=== PATIENT | female | born 1985 | race Caucasian/White ===

== ENCOUNTER 2021-05-08 15:10 | Emergency (ER) | payer SELFPAY ==
[2021-05-08 15:14] VITALS: BP 140/88; PULSE 99; RESP 18; TEMP 37.1; O2SAT 99; BMI 34.4
--- NOTE | 2021-05-08 15:37 | W.ED.URI ---
Documented by User: CARLOS Casper 05/08/21 15:40 HPI - URI/Sore Throat General: Chief Complaint: Upper Respiratory Infection Stated Complaint: FEVER/Tonsillitis Related Pain Time Seen by Provider: 05/08/21 15:23 History of Present Illness: HPI Narrative: Sore throat times couple weeks. Patient did get a Rocephin shot originally. Was placed on doxycycline and Levaquin. Patient said it felt better for a while and was placed on Bactrim this past week and symptoms not improved. Said she has had high fever at times. She has a history of ear infections and throat infections. Said it hurts to swallow. Denies any drooling. Has history of thyroid removal. Does have an ENT appointment in May MD elicited complaint: sore throat and nasal congestion Pertinent past history: other (Multiple throat and ear infections) Onset (ago): day(s) Consistency: intermittent Severity: mild Associated symptoms: Deny abdominal pain, chills, chest pain, fever(s), headache(s), nasal congestion, nausea or vomiting Review of Systems Const: Denies: fever(s), chills or body aches Eyes: Denies: change in vision or blurry vision ENMT: Reports: throat pain, enlarged tonsils and odynophagia; Denies: nasal congestion Card: Denies: chest pain or dyspnea on exertion Resp: Denies: dyspnea, productive cough or non-productive cough GI: Denies: abdominal pain, nausea or vomiting Musc: Denies: extremity pain Skin/Breast: Denies: rash Neuro: Denies: headache(s) Psych: Denies: anxiety or depression Juan Alberto/Lymph: Denies: easy bruising Physical Exam Const: COMMON NORMALS: no acute distress, average body habitus and patient oriented x3 HENMT: COMMON NORMALS: normocephalic, external ears normal, EAC's normal and Normal external nose present HEAD & SCALP: normal to inspection and normocephalic FACE & SINUS: normal facial exam NOSE: Normal external nose present EXTERNAL EAR: Yes external ears normal EXTERNAL AUDITORY CANAL: EAC's normal MOUTH: Normal oral and palatal mucosa present THROAT: abnormal tonsil bilateral erythema and hypertrophy Eye: COMMON NORMALS: conjunctivae normal GENERAL EYE: appearance normal, both eyes and all related structures CONJUNCTIVA: Yes conjunctivae normal Neck/C-Spine: COMMON NORMALS: no JVD Lymph: LYMPHATIC: lymphadenopathy (No posterior adenopathy) bilateral anterior cervical Chest: COMMONS NORMALS: normal inspection of the chest Resp: COMMON NORMALS: normal respiratory effort and clear to auscultation bilaterally AUSCULTATION: clear to auscultation bilaterally Cardio: COMMON NORMALS: no JVD, regular rate and regular rhythm RATE: regular rate RHYTHM: regular rhythm GI: COMMON NORMALS: Normal to inspection, nondistended, normoactive bowel sounds present Extremity: COMMON NORMALS: normal to inspection and full ROM Neuro: COMMON NORMALS: patient oriented x3 Course Vital Signs: Vital signs: Vital Signs Temperature 98.8 F 05/08/21 15:14 Pulse Rate 99 05/08/21 15:14 Respiratory Rate 18 05/08/21 15:14 Blood Pressure 140/88 05/08/21 15:14 Pulse Oximetry 99 05/08/21 15:14 MDM - URI/Sore Throat Lab Data: Labs: Lab Results 05/08/21 17:50 Monoscreen Negative (Negative) Discharge Plan Discharge Patient Disposition: Home Clinical Impression: Tonsillitis Condition: Stable Prescriptions: New clindamycin HCl 300 mg capsule 300 mg PO Q8H 7 Days Qty: 21 RF: 0 Discharge Orders: Discharge ED (Routine); Ordered 05/08/21 Ordered By: Jose Adams Discharge Diet: Usual diet Discharge Activity: Resume usual activity Patient Instructions: Tonsillitis (ED) Activity Restrictions/Additional Instructions: Follow-up with medical provider as directed. Take medications as prescribed. Return to the ER or your medical provider if condition worsens. Please read and understand discharge instructions. If any questions ask please. Stop other antibiotics. Sign Out Sign Out Data: Patient Sign Out occurred on 05/08/21 at 17:05. Patient's care was discussed, and care was transferred from to BRADY Michael. Coding Level of Care Code ED Computer Repair Engineer for Chg Fwd Exam Comprehensive Documented by User: BRADY Michael 05/08/21 21:42 HPI - URI/Sore Throat General: Chief Complaint: Upper Respiratory Infection Stated Complaint: FEVER/Tonsillitis Related Pain Time Seen by Provider: 05/08/21 15:23 Course Vital Signs: Vital signs: Vital Signs Temperature 98.8 F 05/08/21 15:14 Pulse Rate 99 05/08/21 15:14 Respiratory Rate 18 05/08/21 15:14 Blood Pressure 140/88 05/08/21 15:14 Pulse Oximetry 99 05/08/21 15:14 MDM - URI/Sore Throat MDM Narrative: Medical decision making narrative: FeverPatient is a 35-year-old female comes to the ED with her sore throat that started approximately 7 days ago. She has been treated with dose of Rocephin and she was put on Bactrim recently says her sore throat is not getting better. Strep test was negative her PCP office vitals stable. Patient appears nontoxic, stable and in no acute distress or pain. Exam shows hypertrophy and erythema of bilateral tonsils. [place] screen was negative. Patient was given a dose of clindamycin, methylprednisolone and Toradol while here in the ED. Patient was diagnosed with tonsillitis and discharged home with a prescription for clindamycin. Lab Data: Attestation: I reviewed the patient's lab results. Labs: Lab Results 05/08/21 17:50 Monoscreen Negative (Negative) Discharge Plan Discharge Patient Disposition: Home Clinical Impression: Tonsillitis Condition: Stable Prescriptions: New clindamycin HCl 300 mg capsule 300 mg PO Q8H 7 Days Qty: 21 RF: 0 Discharge Orders: Discharge ED (Routine); Ordered 05/08/21 Ordered By: Jose Adams Discharge Diet: Usual diet Discharge Activity: Resume usual activity Patient Instructions: Tonsillitis (ED) Activity Restrictions/Additional Instructions: Follow-up with medical provider as directed. Take medications as prescribed. Return to the ER or your medical provider if condition worsens. Please read and understand discharge instructions. If any questions ask please. Stop other antibiotics. Sign Out Sign Out Data: Patient Sign Out occurred on 05/08/21 at 17:05. Patient's care was discussed, and care was transferred from to BRADY Michael. Coding Level of Care Code ED Computer Repair Engineer for Emiliano Fwcarly Exam Comprehensive
[2021-05-08] MEDS: methylPREDNISolone (DEPO) 80 MG/ML INJ 1 mL IM (16:22)
[2021-05-08] MEDS: clindamycin 150 mg Capsule 300 MG PO (17:04)
[2021-05-08] MEDS: ketorolac 60 mg/2 mL INJ IM (17:49)
[2021-05-08 18:10] LABS: Monoscreen Negative (Negative)
== END 2021-05-08 18:09 | disposition home or self-care (01) ==
PROVIDERS: Nurse Practitioner Family; Emergency Provider Physician Assistant
DX: J03.90 Acute tonsillitis, unspecified (principal)
CPT/HCPCS: 86308; 96372; 99283; J1040; J1885

== ENCOUNTER 2022-05-08 13:12 | Emergency (ER) | payer MEDICAID, SELFPAY ==
[2022-05-08 13:26] VITALS: BP 144/95; PULSE 94; RESP 18; TEMP 39.2; O2SAT 93; BMI 33.5
--- NOTE | 2022-05-08 13:42 | W.ED.DENTAL ---
HPI - Dental/Oral General: Chief complaint: Dental/Oral Stated complaint: possible abcess tooth Time Seen by Provider: 05/08/22 13:42 History of Present Illness: Ms. Beth is a 36-year-old lady with history of thyroid cancer status post neck radiation presented to the emergency department due to concern for dental abscess. She reports onset of symptoms 2 days ago with increasing left maxillary posterior dental pain associated with difficulty swallowing and radiation down the left neck. She has had fevers with T-max at home 103 ?F. She typically takes tramadol for chronic pain and this has not provided any relief for her severe pain that has progressed. Additionally she has tried clindamycin, possibly , without significant improvement. Symptoms are worse with attempting to swallow. No reported airway symptoms. Patient does have mild associated nausea but no vomiting. No other specific changes in health, exacerbating, or alleviating factors identified. Onset (ago): day(s) Duration: worsening Severity: moderate Exacerbating factors: chewing, cold, heat and swallowing Context: history of dental caries and poor dental care Associated symptoms: Reports fever(s) and sore throat Review of Systems General: Reports: 10 or more systems reviewed and unremarkable except in HPI and below Const: Reports: fever(s) PFSH ED PFSH: Medical History (Updated 05/17/22 @ 15:39 by Socrates Lamb MD) History of thyroid cancer Surgical History (Updated 05/17/22 @ 15:39 by Socrates Lamb MD) No significant past surgical history Physical Exam Const: COMMON NORMALS: alert GENERAL APPEARANCE: cooperative and well developed HENMT: COMMON NORMALS: normocephalic and atraumatic HEAD & SCALP: normocephalic and atraumatic THROAT: posterior oropharynx normal OTHER: Left-sided facial tenderness palpation and warmth as well as swelling externally noted. Multiple areas of dental caries and poor dentition. There is currently erythema without drainable fluid collection in the region of patient reports pain. No evidence of posterior pharyngeal distortion or edema, no evidence of EXTRACTOR TENDER RAW STOCK. Eye: COMMON NORMALS: conjunctivae normal CONJUNCTIVA: Yes conjunctivae normal SCLERA: sclerae normal OTHER: No evidence of cellulitis spread to ocular structures, no reported vision complaints and EOMs are intact without pain. Neck/C-Spine: COMMON NORMALS: supple GENERAL: Yes trachea midline Resp: COMMON NORMALS: clear to auscultation bilaterally EFFORT & INSPECTION: Yes able to speak in complete sentences AUSCULTATION: clear to auscultation bilaterally Cardio: COMMON NORMALS: regular rate and regular rhythm RATE: regular rate RHYTHM: regular rhythm GI: COMMON NORMALS: Soft to palpation PALPATION: Yes Soft to palpation and No Tenderness to palpation present (GI) Extremity: GENERAL: Yes normal exam except as noted and No edema Neuro: COMMON NORMALS: moves all extremities SENSORIUM/ORIENTATION: Yes alert and No Orientation impaired Psych: COMMON NORMALS: mental status grossly normal and Normal thought process present THOUGHT PROCESS: Normal thought process present Course Vital Signs: Vital signs: Vital Signs Temperature 102.5 F H 05/08/22 13:26 Pulse Rate 86 05/08/22 16:31 Respiratory Rate 16 05/08/22 16:31 Blood Pressure 118/66 05/08/22 16:31 Pulse Oximetry 98 05/08/22 16:31 Oxygen Delivery Me thod 05/08/22 13:26 MDM - Dental/Oral Medical Decision Making 36-year-old lady presenting with concern over abscessed tooth. Exam as above. The patient is febrile however nontoxic in appearance. Labs without leukocytosis, hemoglobin normal. Metabolic panel with some evidence of dehydration. Strep negative. Given the intensity of symptoms as well as a steady signs of illness with fever and failure of previously taken medications believe imaging is appropriate. Imaging without evidence of deeper infection or abscess. Patient proved with antiemetic, analgesia, and fluids. Most likely cause of patient symptoms is facial cellulitis with dental origin. The results of ED evaluation were discussed with the patient including prescriptions and/or symptomatic cares (if applicable) including appropriate and responsible use, followup plan, and return precautions. The patient verbalized understanding and felt safe for discharge. Medical Records I reviewed the patient's medical records. Lab Data I reviewed the patient's lab results. 05/08/22 14:02 05/08/22 14:[address] 05/08/22 13:47 IMPRESSION: No evidence of infection within the deep cervical soft tissues. Laboratory Results WBC 4.9 10^3/uL (4.0-10.0) 05/08/22 14:02 RBC 4.96 10^6/uL (4.1-5.3) 05/08/22 14:02 Hgb 13.8 g/dL (11.5-15.3) 05/08/22 14:02 Hct 42.8 % (37.0-47.0) 05/08/22 14:02 MCV 86.3 fl (81-99) 05/08/22 14:02 MCH 27.8 pg (28.0-34.0) L 05/08/22 14:02 MCHC 32.2 g/dL (30.0-36.0) 05/08/22 14:02 RDW 14.6 % (12.1-15.1) 05/08/22 14:02 Plt Count 180 10^3/cmm (130-400) 05/08/22 14:02 MPV 12.3 fL (7.4-10.4) H 05/08/22 14:02 Neut % (Auto) 80.9 % 05/08/22 14:02 Lymph % (Auto) 11.5 % 05/08/22 14:02 [place] % (Auto) 6.6 % 05/08/22 14:02 Eos % (Auto) 0.2 % 05/08/22 14:02 Baso % (Auto) 0.6 % 05/08/22 14:02 Neut # (Auto) 3.94 10^3/uL (1.8-7.7) 05/08/22 14:02 Lymph # (Auto) 0.6 10^3/uL (0.8-4.8) L 05/08/22 14:02 [place] # (Auto) 0.3 10^3/uL (0.2-0.9) 05/08/22 14:02 Eos # (Auto) 0.0 10^3/uL (0.0-0.8) 05/08/22 14:02 Baso # (Auto) 0.0 10^3/uL (0.0-0.1) 05/08/22 14:02 Nucleated RBC % (auto) 0 % 05/08/22 14:02 Nucleated RBCs # 0.0 /100WBC 05/08/22 14:02 Sodium 130 mmol/L (136-145) L 05/08/22 14:02 Potassium 3.9 mmol/L (3.5-5.1) 05/08/22 14:02 Chloride 97 mmol/L (98-107) L 05/08/22 14:02 Carbon Dioxide 23 mmol/L (22-29) 05/08/22 14:02 Anion Gap 13.9 (5-19) 05/08/22 14:02 BUN 10 mg/dL (6-20) 05/08/22 14:02 Creatinine 0.9 mg/dL (0.5-0.9) 05/08/22 14:02 GFR Calculation 70.1 mL/min (90-130) L 05/08/22 14:02 Glucose 115 mg/dL (65-115) 05/08/22 14:02 Calculated Osmolality 270 mOsm/kg (285-295) L 05/08/22 14:02 Calcium 9.2 mg/dL (8.5-10.5) 05/08/22 14:02 Total Bilirubin 0.6 mg/dL (0.15-1.2) 05/08/22 14:02 AST 16 U/L (0-32) 05/08/22 14:02 ALT 12 U/L (0-33) 05/08/22 14:02 Alkaline Phosphatase 64 U/L (35-105) 05/08/22 14:02 Total Protein 7.3 g/dL (6.6-8.7) 05/08/22 14:02 Albumin 4.3 g/dL (3.5-5.2) 05/08/22 14:02 Globulin 3.0 g/dL (1.3-4.6) 05/08/22 14:02 Group A Strep Rapid Negative (Negative) 05/08/22 15:20 Discharge Plan Discharge Patient Disposition: Home Clinical Impression: Dental infection, Fever, Dehydration Condition: Stable Prescriptions: New ondansetron 4 mg tablet,disintegrating 4 mg PO Q8H PRN (Reason: nausea and vomiting) Qty: 15 0RF oxycodone 5 mg tablet 5 mg PO Q4H PRN (Reason: pain) Qty: 10 0RF moxifloxacin 400 mg tablet 400 mg PO DAILY 10 Days Qty: 10 0RF Discharge Orders: Discharge ED (Routine); Ordered 05/08/22 Ordered By: Socrates Lamb Discharge Diet: Usual diet Discharge Activity: Increase activity as tolerated Patient Instructions: Dental Caries (Cavities), Moxifloxacin (By mouth) (Avelox), Mouth Care (ED), Opioid Safety, Pain Management Activity Restrictions/Additional Instructions: Thank you for visiting the emergency department. You were seen and evaluated for dental pain. The most likely cause of your symptoms is related to dental infection though no drainable abscess was found on imaging or physical exam. Given your failure to improve with clindamycin I will prescribe a different antibiotic. I will also prescribe oxycodone, use this cautiously as discussed. You may use [id number] medications such as acetaminophen and ibuprofen for pain however please do not exceed the daily recommended dosage as listed on the packaging and please keep in mind that many namebrand medications contain the same active ingredients. Please follow-up with a dentist and your primary care provider. Return to the emergency department for uncontrolled symptoms, any difficulty breathing, or anything else that you are concerned about a feel needs emergency department evaluation. Stand Alone Forms: Work/School Release Coding Level of Care Code ED Detective Chief for Emiliano Wang
--- NOTE | 2022-05-08 13:47 | CTR_ITS ---
PROCEDURE INFORMATION: Exam: CT Neck With Contrast Exam date and time: 05/08/2022 3:00 PM Age: 36 years old Clinical indication: Dysphagia / difficulty swallowing; Prior surgery; Surgery type: Thyroid; Additional info: Eval deep infection, L side maxillary dental radiating neck TECHNIQUE: Imaging protocol: Computed tomography of the neck with contrast. Radiation optimization: All CT scans at this facility use at least one of these dose optimization techniques: automated exposure control; mA and/or kV adjustment per patient size (includes targeted exams where dose is matched to clinical indication); or iterative reconstruction. Contrast material: OMNI 350; Contrast volume: 80 ml; Contrast route: INTRAVENOUS (IV); COMPARISON: No relevant prior studies available. RADIATION DOSE METRICS: Total DLP (mGy-cm): 265.2 FINDINGS: Pharynx: Unremarkable. No significant tonsillar enlargement. Larynx: Unremarkable. Epiglottis is normal. Prevertebral and retropharyngeal spaces: Unremarkable. Salivary glands: Normal. Glands are normal in size. Thyroid: Thyroidectomy. Lymph nodes: Unremarkable. No lymphadenopathy. Trachea: Visualized trachea is unremarkable. Lungs: Unremarkable as visualized. Bones/joints: Unremarkable. No acute fracture. Soft tissues: Unremarkable. No significant soft tissue swelling. CT/CT neck w con* [id number] IMPRESSION: No evidence of infection within the deep cervical soft tissues.
[2022-05-08 14:12] LABS: Basophils % 0.6 %; Eosinophils % 0.2 %; Hematocrit 42.8 % (37.0-47.0); Hemoglobin 13.8 g/dL (11.5-15.3); Lymphocytes # 0.6 10^3/uL (0.8-4.8); Lymphocytes % 11.5 %; Mean Corpuscular HGB Conc 32.2 g/dL (30.0-36.0); Mean Corpuscular Hemoglobin 27.8 pg (28.0-34.0); Mean Corpuscular Volume 86.3 fl (81-99); Mean Platelet Volume 12.3 fL (7.4-10.4); Monocytes # 0.3 10^3/uL (0.2-0.9); Monocytes % 6.6 %; Neutrophils # 3.94 10^3/uL (1.8-7.7); Neutrophils % 80.9 %; Nucleated Red Blood Cells % 0 %; Platelet Count 180 10^3/cmm (130-400); Red Blood Count 4.96 10^6/uL (4.1-5.3); Red Cell Distribution Width 14.6 % (12.1-15.1); White Blood Count 4.9 10^3/uL (4.0-10.0)
[2022-05-08 14:32] LABS: Alanine Aminotransferase 12 U/L (0-33); Albumin Level 4.3 g/dL (3.5-5.2); Alkaline Phosphatase 64 U/L (35-105); Anion Gap 13.9 (5-19); Aspartate Amino Transferase 16 U/L (0-32); Blood Urea Nitrogen 10 mg/dL (6-20); Calcium 9.2 mg/dL (8.5-10.5); Carbon Dioxide 23 mmol/L (22-29); Chloride 97 mmol/L (98-107); Glomerular Filtration Rate 70.1 mL/min (90-130); Glucose 115 mg/dL (65-115); Osmolality Calculated 270 mOsm/kg (285-295); Potassium 3.9 mmol/L (3.5-5.1); Sodium 130 mmol/L (136-145); Total Bilirubin 0.6 mg/dL (0.15-1.2); Total Protein 7.3 g/dL (6.6-8.7)
[2022-05-08] MEDS: iohexol 350 mg/mL 500 mL Btl (per mL) IV (15:06)
[2022-05-08] MEDS: ketorolac 30 mg/mL INJ 15 MG IVP (15:21)
[2022-05-08] MEDS: sodium chloride 0.9% 1,000 ML 999 ML IV (15:21)
[2022-05-08] MEDS: ondansetron 2 mg/ML SDV 2 mL 4 MG IVP (15:22)
[2022-05-08 15:56] LABS: Rapid Strep A Test Negative (Negative)
[2022-05-08 16:25] VITALS: RESP 16
[2022-05-08] MEDS: oxyCODONE 5 mg IR Tab/Cap PO (16:25)
[2022-05-08 16:31] VITALS: BP 118/66; PULSE 86; RESP 16; O2SAT 98
== END 2022-05-08 16:32 | disposition home or self-care (01) ==
PROVIDERS: Emergency Provider Emergency Medicine
DX: K04.7 Periapical abscess without sinus (principal); R50.9 Fever, unspecified; E86.0 Dehydration
CPT/HCPCS: 70491; 80053; 85025; 87040; 87081; 87880; 96361; 96374; 96375; 99285; J1885; J2405; J7030; Q9967

== ENCOUNTER 2022-07-04 14:44 | Emergency (ER) | payer MEDICAID, SELFPAY ==
[2022-07-04] VITALS (14 sets, daily range): BP systolic 107–115; BP diastolic 65–71; PULSE 91–96; RESP 16–17; TEMP 36.3; O2SAT 97–100; BMI 31.1
--- NOTE | 2022-07-04 15:21 | W.ED.FEMALGU ---
HPI - Female Genitourinary General: Chief complaint: Urogenital-Female Stated complaint: Can't Urinate Time Seen by Provider: 07/04/22 15:02 Source: patient Mode of arrival: ambulatory History of Present Illness: 36-year-old female who presents to the emergency room with complaint of difficulty urinating for the last 4 days she has noticed decreased urinary output with dysuria. She denies any burning with urination she has a history of renal stones she has a bit of left flank pain with that she is not particularly uncomfortable as patients usually are with nephrolithiasis. She denies any fever sweats chills no vomiting or diarrhea but has had some moderate nausea. MD elicited complaint: dysuria Pertinent past history: other (Nephrolithiasis) Onset (ago): day(s) (4) Severity: moderate Female Urogenital Radiation: Non-Radiating Quality of pain: sharp Consistency: constant Urinary symptoms: Flank Pain Exacerbating factors: none Relieving factors: none Associated symptoms: Reports abdominal pain and nausea; Deny short of breath, fevers/chills, headache(s), rash, seizures, syncope, vaginal bleeding, vaginal discharge or weakness Treatment prior to arrival: none Review of Systems Const: Denies: fever(s), chills, body aches, change in appetite, fatigue or malaise ENMT: Denies: throat pain, ear or mastoid pain, nasal discharge or nasal congestion Card: Denies: syncope Resp: Denies: dyspnea, productive cough or non-productive cough GI: Reports: abdominal pain and nausea; Denies: vomiting : Reports: flank pain and oliguria; Denies: dysuria, urinary frequency, urinary urgency or vaginal discharge Skin/Breast: Denies: rash or pruritus Neuro: Denies: headache(s) [facility] ED PFSH: Medical History History of thyroid cancer Surgical History No significant past surgical history Physical Exam Const: GENERAL APPEARANCE: cooperative and comfortable ORIENTATION/CONSCIOUSNESS: Yes awake, Yes oriented to person, Yes oriented to place and Yes oriented to time HENMT: COMMON NORMALS: normocephalic, atraumatic and hearing grossly normal bilaterally HEAD & SCALP: normocephalic and atraumatic Resp: COMMON NORMALS: normal respiratory effort, No retractions, No use of accessory muscles and clear to auscultation bilaterally AUSCULTATION: clear to auscultation bilaterally Cardio: COMMON NORMALS: regular rate, regular rhythm and No murmurs present (Cardio) RATE: regular rate RHYTHM: regular rhythm GI: COMMON NORMALS: Soft to palpation and No hepatosplenomegaly present AUSCULTATION: Yes normoactive bowel sounds PALPATION: Yes Soft to palpation, No Tenderness to palpation present (GI), No Guarding due to palpation present (GI) and Yes No hepatosplenomegaly present : SPECULUM EXAM - VAGINA: No vaginal bleeding OB/EXTERNAL & SPECULUM: No vaginal bleeding Extremity: COMMON NORMALS: normal to inspection, capillary refill normal, no clubbing, cyanosis or edema, no calf tenderness and no pedal edema Neuro: SENSORIUM/ORIENTATION: Yes oriented to person, Yes oriented to place and Yes oriented to time Skin: COMMON NORMALS: no rashes or lesions noted GENERAL SKIN EXAM: no rashes or lesions noted Course Vital Signs: Vital signs: Vital Signs Temperature 97.4 F L 07/04/22 14:56 Pulse Rate 91 07/04/22 16:50 Respiratory Rate 17 07/04/22 16:50 Blood Pressure 115/70 07/04/22 16:50 Pulse Oximetry 98 07/04/22 16:50 Oxygen Delivery Me thod 07/04/22 14:56 MDM - Female Medical Decision Making Labs reviewed. Patient has predominantly white blood cells clinically she does not appear to have a nephrolithiasis. She has taken 2 days of Cipro and has 2 more days at home we will give her another 3 days to complete a 7-day course also gave her Pyridium for the next 2 days to relieve bladder spasm. Push oral fluids follow-up with primary care if not improving Medical Records I reviewed the patient's medical records. Lab Data I reviewed the patient's lab results. 07/04/22 15:10 07/04/22 15:10 Laboratory Results WBC 10.5 10^3/uL (4.0-10.0) H 07/04/22 15:10 RBC 4.95 10^6/uL (4.1-5.3) 07/04/22 15:10 Hgb 13.1 g/dL (11.5-15.3) 07/04/22 15:10 Hct 41.6 % (37.0-47.0) 07/04/22 15:10 MCV 84.0 fl (81-99) 07/04/22 15:10 MCH 26.5 pg (28.0-34.0) L 07/04/22 15:10 MCHC 31.5 g/dL (30.0-36.0) 07/04/22 15:10 RDW 15.6 % (12.1-15.1) H 07/04/22 15:10 Plt Count 143 10^3/cmm (130-400) 07/04/22 15:10 MPV 12.6 fL (7.4-10.4) H 07/04/22 15:10 Neut % (Auto) 23.4 % 07/04/22 15:10 Lymph % (Auto) 71.4 % 07/04/22 15:10 [place] % (Auto) 2.6 % 07/04/22 15:10 Eos % (Auto) 1.4 % 07/04/22 15:10 Baso % (Auto) 0.8 % 07/04/22 15:10 Neut # (Auto) 2.47 10^3/uL (1.8-7.7) 07/04/22 15:10 Lymph # (Auto) 7.5 10^3/uL (0.8-4.8) H 07/04/22 15:10 [place] # (Auto) 0.3 10^3/uL (0.2-0.9) 07/04/22 15:10 Eos # (Auto) 0.2 10^3/uL (0.0-0.8) 07/04/22 15:10 Baso # (Auto) 0.1 10^3/uL (0.0-0.1) 07/04/22 15:10 Nucleated RBC % (auto) 0 % 07/04/22 15:10 Nucleated RBCs # 0.0 /100WBC 07/04/22 15:10 Sodium 133 mmol/L (136-145) L 07/04/22 15:10 Potassium 3.9 mmol/L (3.5-5.1) 07/04/22 15:10 Chloride 100 mmol/L (98-107) 07/04/22 15:10 Carbon Dioxide 26 mmol/L (22-29) 07/04/22 15:10 Anion Gap 10.9 (5-19) 07/04/22 15:10 BUN 9 mg/dL (6-20) 07/04/22 15:10 Creatinine 0.8 mg/dL (0.5-0.9) 07/04/22 15:10 GFR Calculation 80.3 mL/min (90-130) L 07/04/22 15:10 Glucose 96 mg/dL (65-115) 07/04/22 15:10 Calculated Osmolality 275 mOsm/kg (285-295) L 07/04/22 15:10 Calcium 8.3 mg/dL (8.5-10.5) L 07/04/22 15:10 Total Bilirubin 0.4 mg/dL (0.15-1.2) 07/04/22 15:10 AST 93 U/L (0-32) H 07/04/22 15:10 ALT 79 U/L (0-33) H 07/04/22 15:10 Alkaline Phosphatase 114 U/L (35-105) H 07/04/22 15:10 Total Protein 6.5 g/dL (6.6-8.7) L 07/04/22 15:10 Albumin 3.6 g/dL (3.5-5.2) 07/04/22 15:10 Globulin 2.9 g/dL (1.3-4.6) 07/04/22 15:10 HCG, Qual Negative (Negative) 07/04/22 15:10 Urine Color Dark yellow (Yellow) 07/04/22 15:24 Urine Appearance Clear (CLEAR) 07/04/22 15:24 Urine pH 5 (5-7) 07/04/22 15:24 Ur Specific [place] 1.020 (1.005-1.030) 07/04/22 15:24 Urine Protein Trace (Negative) 07/04/22 15:24 Urine Glucose (UA) Norm (Normal) 07/04/22 15:24 Urine Ketones 1+ (Negative) H 07/04/22 15:24 Urine Blood 2+ (Negative) H 07/04/22 15:24 Urine Nitrate Negative (Negative) 07/04/22 15:24 Urine Bilirubin Neg (Negative) 02/06/23 15:24 Urine Urobilinogen Norm mg/dL (Negative) 07/04/22 15:24 Ur Leukocyte Esterase Trace (Negative) H 07/04/22 15:24 Urine RBC 0-4 /hpf (0-2) H 07/04/22 15:24 Urine WBC 10-15 /hpf (0-5) H 07/04/22 15:24 Ur Squamous Epith Cells 5-10 /hpf (0-5) H 07/04/22 15:24 Amorphous Sediment 1+ /hpf 07/04/22 15:24 Urine Bacteria 1+ /hpf (NONE) H 07/04/22 15:24 Urine Mucus 2+ /hpf 07/04/22 15:24 Discharge Plan Discharge Patient Disposition: Home Clinical Impression: Urinary tract infection Condition: Stable Prescriptions: New Pyridium 200 mg tablet 200 mg PO Q8H Qty: 6 0RF No Action liothyronine 25 mcg tablet 25 mcg PO DAILY ciprofloxacin HCl 500 mg tablet 500 mg PO BID levothyroxine 88 mcg Tablet 88 mcg PO DAILY Discharge Orders: Discharge ED (Routine); Ordered 07/04/22 Ordered By: Jose Lucero Discharge Diet: Usual diet Discharge Activity: Resume usual activity Patient Instructions: Opioid Safety, Pain Management Activity Restrictions/Additional Instructions: You were seen today for urinary tract symptoms. You have already taken 2 days of Cipro and told us that you had 2 more days left we gave you another 3 days to complete a full 7-day course. Urine showed predominantly white blood cells and it was indicative of a bladder infection. White count was slightly elevated. Your symptoms persist follow-up with primary care. Stand Alone Forms: Work/School Release Coding Level of Care Code ED Tier Over for Emiliano Wang
[2022-07-04 15:22] LABS: Basophils # 0.1 10^3/uL (0.0-0.1); Basophils % 0.8 %; Eosinophils # 0.2 10^3/uL (0.0-0.8); Eosinophils % 1.4 %; Hematocrit 41.6 % (37.0-47.0); Hemoglobin 13.1 g/dL (11.5-15.3); Lymphocytes # 7.5 10^3/uL (0.8-4.8); Lymphocytes % 71.4 %; Mean Corpuscular HGB Conc 31.5 g/dL (30.0-36.0); Mean Corpuscular Hemoglobin 26.5 pg (28.0-34.0); Mean Platelet Volume 12.6 fL (7.4-10.4); Monocytes # 0.3 10^3/uL (0.2-0.9); Monocytes % 2.6 %; Neutrophils # 2.47 10^3/uL (1.8-7.7); Neutrophils % 23.4 %; Nucleated Red Blood Cells % 0 %; Platelet Count 143 10^3/cmm (130-400); Red Blood Count 4.95 10^6/uL (4.1-5.3); Red Cell Distribution Width 15.6 % (12.1-15.1); White Blood Count 10.5 10^3/uL (4.0-10.0)
[2022-07-04 15:37] LABS: HCG, Serum Qual Negative (Negative)
[2022-07-04 15:39] LABS: Carbon Dioxide 26 mmol/L (22-29); Potassium 3.9 mmol/L (3.5-5.1); Total Bilirubin 0.4 mg/dL (0.15-1.2)
[2022-07-04 15:56] LABS: Alanine Aminotransferase 79 U/L (0-33); Albumin Level 3.6 g/dL (3.5-5.2); Alkaline Phosphatase 114 U/L (35-105); Anion Gap 10.9 (5-19); Aspartate Amino Transferase 93 U/L (0-32); Blood Urea Nitrogen 9 mg/dL (6-20); Calcium 8.3 mg/dL (8.5-10.5); Chloride 100 mmol/L (98-107); Globulin 2.9 g/dL (1.3-4.6); Glomerular Filtration Rate 80.3 mL/min (90-130); Glucose 96 mg/dL (65-115); Osmolality Calculated 275 mOsm/kg (285-295); Slide Review Slide Review Perform; Sodium 133 mmol/L (136-145); Total Protein 6.5 g/dL (6.6-8.7)
[2022-07-04 16:14] LABS: Blood Urine 2+ (Negative); Glucose Urine UA Norm (Normal); Ketones Urine 1+ (Negative); Nitrate Urine Negative (Negative); Protein Urine Trace (Negative); Urine Appearance Clear (CLEAR); Urine Color Dark Yellow (Yellow); pH Urine 5 (5-7)
[2022-07-04 16:15] LABS: Add Urine Culture? No; Add Urine Microscopic? YES; Amorphous Sediment Urine 1+ /hpf; Bacteria Urine 1+ /hpf; Bilirubin Urine Neg (Negative); Leukocyte Esterase Urine Trace (Negative); Mucus Urine 2+ /hpf; RBC Urine 0-4 /hpf (0-2); Urobilinogen Urine Norm (Negative)
== END 2022-07-04 16:52 | disposition home or self-care (01) ==
PROVIDERS: Emergency Provider Family Medicine
DX: N39.0 Urinary tract infection, site not specified (principal); Z85.850 Personal history of malignant neoplasm of thyroid
CPT/HCPCS: 36415; 80053; 81001; 84703; 85025; 99283

== ENCOUNTER → 2022-10-31 08:48 | Outpatient (BNVA) | payer MEDICAID, SELFPAY | PROVIDERS: Referring Provider Nurse Practitioner Family; Visit Provider Obstetrics & Gynecology | DX: Z12.4 Encounter for screening for malignant neoplasm of cervix (principal) | CPT/HCPCS: 87624 ==

== ENCOUNTER → 2022-11-28 12:12 | Outpatient (BNVA) | payer MEDICAID, SELFPAY | PROVIDERS: PCP Nurse Practitioner Family; Referring Provider Nurse Practitioner Family; Visit Provider Internal Medicine | DX: E07.9 Disorder of thyroid, unspecified (principal) | CPT/HCPCS: 84439; 84443; 84480 ==

== ENCOUNTER 2023-02-28 21:56 | Emergency (ER) | payer MEDICAID, SELFPAY ==
[2023-02-28 22:02] VITALS: PULSE 67; RESP 16; TEMP 36.6; O2SAT 100; BMI 36.1
--- NOTE | 2023-02-28 22:38 | ED_ITS ---
HPI - General Adult General: Chief complaint: General Medical Stated complaint: abnormal labs,weakness Time Seen by Provider: 02/28/23 22:28 History of Present Illness: Patient is a 37-year-old female who presents the emergency room with generalized weakness and abnormal laboratory findings. Patient reports that she went to see her assistant signal maintainer back in first part of November and was switched from levothyroxine to thyroid [place]. Patient also reports that she went Monday last week to her PCP where she was diagnosed with COVID and a TSH level was obtained and revealed 129. Patient reports that she has had increased weakness, nausea, vomiting, and muscle weakness/fatigue for the past week. Patient reports her shortness of breath and cough related to COVID are improving but states her generalized weakness and fatigue are worsening. Past medical history of a total thyroidectomy 4 years ago at [facility] in [place]. She denies any chest pain or abdominal pain. Reports that she does have diarrhea for the past week as well. No other complaints at this time. Associated symptoms: Reports dyspnea, malaise, nausea and vomiting; Deny chest pain, headache(s), rash or palpitations Review of Systems Const: Reports: body aches, change in appetite, fatigue and malaise; Denies: fever(s) or chills Eyes: Denies: change in vision or blurry vision ENMT: Denies: throat pain or mouth pain Card: Denies: chest pain or palpitations Resp: Reports: dyspnea and non-productive cough; Denies: productive cough GI: Reports: nausea and vomiting; Denies: abdominal pain : Denies: flank pain or difficulty voiding Musc: Reports: muscle cramps and muscle weakness Skin/Breast: Denies: rash or pruritus Neuro: Denies: headache(s) or numbness in extremities PFSH ED PFSH: Surgical History No significant past surgical history Family History Denies family history of Colon cancer Ovarian cancer Diabetes Heart disease Breast cancer Hypertension Uterine cancer Thyroid disease Stroke Female Reproductive History: Date of last menstrual period: 02/15/23 Physical Exam Const: COMMON NORMALS: patient oriented x3 and alert GENERAL APPEARANCE: cooperative HENMT: COMMON NORMALS: normocephalic HEAD & SCALP: normocephalic Eye: COMMON NORMALS: Equal, round and reactive pupils present and EOMs intact bilaterally GENERAL EYE: appearance normal, both eyes and all related structures PUPIL: Yes Equal, round and reactive pupils present Neck/C-Spine: COMMON NORMALS: full ROM, no lymphadenopathy and no JVD GENERAL: Yes normal visual inspection Lymph: LYMPHATIC: no lymphadenopathy noted Chest: CHEST: Yes Symmetrical chest wall rise Resp: COMMON NORMALS: normal respiratory effort and clear to auscultation bilaterally EFFORT & INSPECTION: Yes symmetric chest movement AUSCULTA TION: clear to auscultation bilaterally Cardio: COMMON NORMALS: no JVD and S1 normal heart sound present HEART SOUNDS: S1 normal heart sound present GI: COMMON NORMALS: Normal to inspection, nondistended, normoactive bowel sounds present : COMMON NORMALS: Yes no CVA tenderness BLADDER/KIDNEY EXAM: Yes no CVA tenderness Back/Pelvis: COMMON NORMALS: no CVA tenderness Neuro: COMMON NORMALS: patient oriented x3 SENSORIUM/ORIENTATION: Yes alert Course Vital Signs: Vital signs: Vital Signs Temperature 97.9 F 02/28/23 22:02 Pulse Rate 61 03/01/23 00:13 Respiratory Rate 16 02/28/23 22:02 Blood Pressure 119/78 03/01/23 00:13 Pulse Oximetry 97 03/01/23 00:13 Oxygen Delivery Me thod Room Air 02/28/23 22:02 [facility] - General Adult Medical Decision Making Patient presents here with fatigue weakness likely from hypothyroidism did give her Synthroid here blood work is otherwise normal she is to follow-up with her assistant signal maintainer and return if worsening. Medical Records I reviewed the patient's medical records. Lab Data I reviewed the patient's lab results. 02/28/23 22:49 02/28/23 22:49 Laboratory Results WBC 9.39 10^3/uL (3.29-11.43) 02/28/23 22:49 RBC 4.55 10^6/uL (3.85-5.65) 02/28/23 22:49 Hgb 12.90 g/dL (11.27-16.99) 02/28/23 22:49 Hct 38.8 % (36-47) 02/28/23 22:49 MCV 85.3 fl (85-98) 02/28/23 22:49 MCH 28.4 pg (27-33) 02/28/23 22:49 MCHC 33.2 g/dL (30-55) 02/28/23 22:49 RDW 15.5 % (12.1-15.1) H 02/28/23 22:49 Plt Count 237 10^3/cmm (157-399) 02/28/23 22:49 MPV 11.5 fL (7.4-10.4) H 02/28/23 22:49 Neut % (Auto) 55.7 % 02/28/23 22:49 Lymph % (Auto) 36.7 % 02/28/23 22:49 [place] % (Auto) 4.4 % 02/28/23 22:49 Eos % (Auto) 2.3 % 02/28/23 22:49 Baso % (Auto) 0.5 % 02/28/23 22:49 Neut # (Auto) 5.22 10^3/uL (1.8-7.7) 02/28/23 22:49 Lymph # (Auto) 3.5 10^3/uL (0.8-4.8) 02/28/23 22:49 [place] # (Auto) 0.4 10^3/uL (0.2-0.9) 02/28/23 22:49 Eos # (Auto) 0.2 10^3/uL (0.0-0.8) 02/28/23 22:49 Baso # (Auto) 0.1 10^3/uL (0.0-0.1) 02/28/23 22:49 Nucleated RBC % (auto) 0 % 02/28/23 22:49 Nucleated RBCs # 0.0 /100WBC 02/28/23 22:49 Sodium 138 mmol/L (136-145) 02/28/23 22:49 Potassium 3.8 mmol/L (3.5-5.1) 02/28/23 22:49 Chloride 100 mmol/L (98-107) 02/28/23 22:49 Carbon Dioxide 29 mmol/L (22-29) 02/28/23 22:49 Anion Gap 12.8 (5-19) 02/28/23 22:49 BUN 11 mg/dL (6-20) 02/28/23 22:49 Creatinine 0.8 mg/dL (0.5-0.9) 02/28/23 22:49 GFR Calculation 79.9 mL/min (90-130) L 02/28/23 22:49 Glucose 118 mg/dL (65-115) H 02/28/23 22:49 Calculated Osmolality 286 mOsm/kg (285-295) 02/28/23 22:49 Calcium 8.8 mg/dL (8.5-10.5) 02/28/23 22:49 Magnesium 2.1 mg/dL (1.7-2.3) 02/28/23 22:49 Total Bilirubin 0.3 mg/dL (0.15-1.2) 02/28/23 22:49 AST 12 U/L (0-32) 02/28/23 22:49 ALT 8 U/L (0-33) 02/28/23 22:49 Alkaline Phosphatase 62 U/L (35-105) 02/28/23 22:49 Total Protein 6.7 g/dL (6.6-8.7) 02/28/23 22:49 Albumin 4.4 g/dL (3.5-5.2) 02/28/23 22:49 Globulin 2.3 g/dL (1.3-4.6) 02/28/23 22:49 TSH 131.20 uIU/mL (0.27-4.20) H 02/28/23 22:49 Urine Color Yellow (Yellow) 02/28/23 22:55 Urine Appearance Clear (CLEAR) 02/28/23 22:55 Urine pH 7 (5-7) 02/28/23 22:55 Ur Specific [place] 1.015 (1.005-1.030) 02/28/23 22:55 Urine Protein Neg (Negative) 02/28/23 22:55 Urine Glucose (UA) Norm (Normal) 02/28/23 22:55 Urine Ketones Negative (Negative) 02/28/23 22:55 Urine Blood Neg (Negative) 02/28/23 22:55 Urine Nitrate Negative (Negative) 02/28/23 22:55 Urine Bilirubin Neg (Negative) 02/28/23 22:55 Urine Urobilinogen Norm mg/dL (Negative) 02/28/23 22:55 Ur Leukocyte Esterase Negative (Negative) 02/28/23 22:55 No radiology studies performed this visit Discharge Plan Discharge Patient Disposition: Home Clinical Impression: Hypothyroid Condition: Stable Prescriptions: 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
[2023-02-28 22:57] LABS: Add Urine Microscopic? NO; Charge for UA Resulting for Rev
[2023-02-28 22:58] LABS: Basophils # 0.1 10^3/uL (0.0-0.1); Basophils % 0.5 %; Eosinophils # 0.2 10^3/uL (0.0-0.8); Eosinophils % 2.3 %; Hematocrit 38.8 % (36-47); Lymphocytes # 3.5 10^3/uL (0.8-4.8); Lymphocytes % 36.7 %; Mean Corpuscular HGB Conc 33.2 g/dL (30-55); Mean Corpuscular Hemoglobin 28.4 pg (27-33); Mean Corpuscular Volume 85.3 fl (85-98); Mean Platelet Volume 11.5 fL (7.4-10.4); Monocytes # 0.4 10^3/uL (0.2-0.9); Monocytes % 4.4 %; Neutrophils # 5.22 10^3/uL (1.8-7.7); Neutrophils % 55.7 %; Nucleated Red Blood Cells % 0 %; Platelet Count 237 10^3/cmm (157-399); Red Blood Count 4.55 10^6/uL (3.85-5.65); Red Cell Distribution Width 15.5 % (12.1-15.1); White Blood Count 9.39 10^3/uL (3.29-11.43)
[2023-02-28 23:04] LABS: Bilirubin Urine Neg (Negative); Blood Urine Neg (Negative); Glucose Urine UA Norm (Normal); Ketones Urine Negative (Negative); Leukocyte Esterase Urine Negative (Negative); Nitrate Urine Negative (Negative); Protein Urine Neg (Negative); Specific Gravity, Urine 1.015 (1.005-1.030); Urine Appearance Clear (CLEAR); Urine Color Yellow (Yellow); Urobilinogen Urine Norm (Negative); pH Urine 7 (5-7)
[2023-02-28] MEDS: sodium chloride 0.9% 1,000 ML 999 ML IV (23:15)
[2023-02-28] MEDS: levothyroxine 100 mcg SDV IVP (23:16)
[2023-02-28 23:32] LABS: Alanine Aminotransferase 8 U/L (0-33); Albumin Level 4.4 g/dL (3.5-5.2); Alkaline Phosphatase 62 U/L (35-105); Anion Gap 12.8 (5-19); Aspartate Amino Transferase 12 U/L (0-32); Blood Urea Nitrogen 11 mg/dL (6-20); Calcium 8.8 mg/dL (8.5-10.5); Carbon Dioxide 29 mmol/L (22-29); Chloride 100 mmol/L (98-107); Globulin 2.3 g/dL (1.3-4.6); Glomerular Filtration Rate 79.9 mL/min (90-130); Glucose 118 mg/dL (65-115); Magnesium 2.1 mg/dL (1.7-2.3); Osmolality Calculated 286 mOsm/kg (285-295); Potassium 3.8 mmol/L (3.5-5.1); Sodium 138 mmol/L (136-145); Total Bilirubin 0.3 mg/dL (0.15-1.2); Total Protein 6.7 g/dL (6.6-8.7)
[2023-03-01 00:03] VITALS: BP 119/78; PULSE 68; O2SAT 97
[2023-03-01 00:13] VITALS: BP 119/78; PULSE 61; O2SAT 97
== END 2023-03-01 00:14 | disposition home or self-care (01) ==
PROVIDERS: Emergency Provider Emergency Medicine; PCP Nurse Practitioner Family
DX: E03.9 Hypothyroidism, unspecified (principal)
CPT/HCPCS: 36415; 80053; 81003; 83735; 84443; 85025; 96374; 99284; J3490; J7030

== ENCOUNTER → 2023-04-05 10:52 | Outpatient (BNVA) | payer MEDICAID, SELFPAY | PROVIDERS: PCP Nurse Practitioner Family; Visit Provider Internal Medicine | DX: E07.9 Disorder of thyroid, unspecified (principal) | CPT/HCPCS: 84439; 84480; 86376; 86800 ==

== ENCOUNTER → 2023-05-02 09:48 | Outpatient (BNVA) | payer MEDICAID, SELFPAY | PROVIDERS: PCP Nurse Practitioner Family; Visit Provider Internal Medicine | DX: E07.9 Disorder of thyroid, unspecified (principal) | CPT/HCPCS: 84439; 84443 ==

== ENCOUNTER → 2023-05-09 17:31 | Outpatient (BNVA) | payer MEDICAID, SELFPAY | PROVIDERS: PCP Nurse Practitioner Family; Visit Provider Internal Medicine | DX: R79.89 Other specified abnormal findings of blood chemistry (principal); E03.9 Hypothyroidism, unspecified | CPT/HCPCS: 82306; 82607; 84439; 84443 ==

== ENCOUNTER → 2023-06-01 10:52 | Outpatient (BNVA) | payer MEDICAID, SELFPAY | PROVIDERS: PCP Nurse Practitioner Family; Visit Provider Family Medicine | DX: E03.9 Hypothyroidism, unspecified (principal); R53.83 Other fatigue; R79.89 Other specified abnormal findings of blood chemistry; R09.89 Other specified symptoms and signs involving the circulatory and respiratory systems; J20.8 Acute bronchitis due to other specified organisms | CPT/HCPCS: 82306; 82607; 82784; 83516; 84439; 84480 ==

== ENCOUNTER → 2023-06-27 17:04 | Outpatient (BNVA) | payer MEDICAID, SELFPAY | PROVIDERS: PCP Nurse Practitioner Family; Visit Provider Internal Medicine | DX: E03.9 Hypothyroidism, unspecified (principal) | CPT/HCPCS: 84439; 84443; 84480 ==

== ENCOUNTER 2023-07-14 08:51 | Oncology outpatient (recurring) (ONCR) | payer MEDICAID, SELFPAY ==
[2023-07-14 09:10] VITALS: BP 135/82; PULSE 80; RESP 16; O2SAT 98
[2023-07-14] MEDS: levothyroxine 100 mcg/mL SDV IM (09:13)
--- NOTE | 2023-07-14 09:18 | PC.NURSE ---
Levothyroxine Injection Educated Patient scheduled today for induction dose of levothyroxine and education for at-home injecting. Patient educated on how to draw up medication from vials, appropriate muscular sites for injecting, and how to inject the medication into the muscle. Patient verbalized understanding.
== END 2023-07-27 23:59 | disposition home or self-care (01) ==
LOC: ONCMED 08:53
PROVIDERS: PCP Family Medicine; Visit Provider Family Medicine
DX: E03.9 Hypothyroidism, unspecified (principal)
CPT/HCPCS: 96372

== ENCOUNTER → 2023-07-31 16:25 | Outpatient (BNVA) | payer MEDICAID, SELFPAY | PROVIDERS: PCP Family Medicine; Visit Provider Internal Medicine | DX: E03.9 Hypothyroidism, unspecified (principal); R79.89 Other specified abnormal findings of blood chemistry | CPT/HCPCS: 84439; 84480 ==

== ENCOUNTER 2023-08-02 11:41 | Emergency (ER) | payer MEDICAID, SELFPAY ==
[2023-08-02 11:45] VITALS: BP 145/95; PULSE 75; RESP 18; TEMP 36.6; O2SAT 100
--- NOTE | 2023-08-02 13:39 | CT_ITS ---
WS: [id number] CT NECK TECHNIQUE: Contrast-enhanced CT of the neck with coronal and sagittal reformatted images. CLINICAL INFORMATION: diifficulty swallowing/neck swelling COMPARISON: 05/08/2022 DLP: 292.[address] scans at [facility] use at least one of these dose optimization techniques: automated e xposure control; mA and/or kV adjustment per patient size (includes targeted exams where dose is matc hed to clinical indication); or iterative reconstruction. FINDINGS: Paranasal sinuses are well aerated. Mastoid air cells are well aerated. Normal posterior nasopharynx. Normal [place] tonsils. No evidence of peritonsillar or retropharyngeal abscess. No evidence of sup raglottic or glottic mass. Normal subglottic airway. Parotid glands are normal. Submandibular glands are normal. Lung apices are well aerated. Straighteni ng the normal cervical lordosis. Mild cervical curve. A few prominent LEFT greater than RIGHT jugulod igastric and submandibular lymph nodes within normal limits. Carotid arteries are patent. No evidence of drainable abscess or fluid collection. No other suspicio us findings. IMPRESSION: 1. Normal [place] tonsils. No evidence of peritonsillar abscess or retropharyngeal abscess. 2. A few slightly prominent jugulodigastric and submandibular lymph nodes within normal limits likel y reactive. No cervical lymphadenopathy. 3. No evidence of supraglottic or glottic mass. 4. No other suspicious findings.
--- NOTE | 2023-08-02 13:41 | ED_ITS ---
HPI - General Adult 2 General: Chief complaint: General Medical Stated complaint: sob, swollen throat Time Seen by Provider: 08/02/23 13:31 Source: patient Mode of arrival: ambulatory Limitations: no limitations History of Present Illness: 37-year-old female that had a thyroidect negrito roughly 6 to 7 years ago states she is currently on thyroid injections that she just started she states that 3 days ago she started to feel like her anterior neck swelling she is having some difficulty swallowing states she had a rash to her face 2 she took Benadryl and states rest is resolved but she still feels like she is having a hard time swallowing with neck swelling denies any fevers Associated symptoms: Deny chest pain, dyspnea, headache(s), nausea, rash or vomiting Review of Systems 2 Const: Denies: fever(s), chills, body aches or change in appetite ENMT: Denies: throat pain or dental pain Card: Denies: chest pain Resp: Denies: dyspnea GI: Denies: abdominal pain, nausea, vomiting or diarrhea Musc: Denies: neck pain or back pain Skin/Breast: Denies: rash Neuro: Denies: headache(s) PFSH ED 2 PFSH: Surgical History No significant past surgical history Family History Denies family history of Colon cancer Ovarian cancer Diabetes Heart disease Breast cancer Hypertension Uterine cancer Thyroid disease Stroke Physical Exam 2 Const: COMMON NORMALS: no acute distress, patient oriented x3 and healthy appearing HENMT: COMMON NORMALS: normocephalic and atraumatic HEAD & SCALP: n ormocephalic and atraumatic MOUTH: Normal oral and palatal mucosa present THROAT: posterior oropharynx normal Eye: COMMON NORMALS: Equal, round and reactive pupils present and EOMs intact bilaterally PUPIL: Yes Equal, round and reactive pupils present Neck/C-Spine: COMMON NORMALS: full ROM and supple Chest: COMMONS NORMALS: normal inspection of the chest and normal palpation of entire chest wall Resp: COMMON NORMALS: normal respiratory effort, No retractions, No use of accessory muscles and clear to auscultation bilaterally AUSCULTATION: clear to auscultation bilaterally Cardio: COMMON NORMALS: regular rate, regular rhythm and No murmurs present (Cardio) RATE: regular rate RHYTHM: regular rhythm Extremity: COMMON NORMALS: normal to inspection and full ROM Neuro: COMMON NORMALS: patient oriented x3, moves all extremities and no focal motor deficits Psych: COMMON NORMALS: mental status grossly normal, Normal thought process present and cooperative THOUGHT PROCESS: Normal thought process present Skin: COMMON NORMALS: no rashes or lesions noted and no wounds GENERAL SKIN EXAM: no rashes or lesions noted Course 2 Vital Signs: Vital signs: Vital Signs Temperature 97.9 F 08/02/23 11:45 Pulse Rate 64 08/02/23 15:40 Respiratory Rate 18 08/02/23 11:45 Blood Pressure 114/72 08/02/23 15:40 Pulse Oximetry 97 08/02/23 15:40 Oxygen Delivery Me thod Room Air 08/02/23 15:40 MDM - General Adult Medical Decision Making Patient presents here with some neck pain and feel like she has neck swelling her exam here is benign CT showed some lymphadenopathy no mass or swelling of her airway or neck she is well-appearing here she is handling secretions well she stable for discharge she is follow-up with her PCP and return if worsening. Medical Records I reviewed the patient's medical records. Lab Data I reviewed the patient's lab results. 08/02/23 15:15 08/02/23 15:15 Laboratory Results WBC 6.57 10^3/uL (3.29-11.43) 08/02/23 15:15 RBC 4.68 10^6/uL (3.85-5.65) 08/02/23 15:15 Hgb 12.80 g/dL (11.27-16.99) 08/02/23 15:15 Hct 39.7 % (36-47) 08/02/23 15:15 MCV 84.8 fl (85-98) L 08/02/23 15:15 MCH 27.4 pg (27-33) 08/02/23 15:15 MCHC 32.2 g/dL (30-55) 08/02/23 15:15 RDW 15.3 % (12.1-15.1) H 08/02/23 15:15 Plt Count 228 10^3/cmm (157-399) 08/02/23 15:15 MPV 11.8 fL (7.4-10.4) H 08/02/23 15:15 Neut % (Auto) 67.3 % 08/02/23 15:15 Lymph % (Auto) 26.3 % 08/02/23 15:15 [place] % (Auto) 4.1 % 08/02/23 15:15 Eos % (Auto) 1.5 % 08/02/23 15:15 Baso % (Auto) 0.5 % 08/02/23 15:15 Neut # (Auto) 4.42 10^3/uL (1.8-7.7) 08/02/23 15:15 Lymph # (Auto) 1.7 10^3/uL (0.8-4.8) 08/02/23 15:15 [place] # (Auto) 0.3 10^3/uL (0.2-0.9) 08/02/23 15:15 Eos # (Auto) 0.1 10^3/uL (0.0-0.8) 08/02/23 15:15 Baso # (Auto) 0.0 10^3/uL (0.0-0.1) 08/02/23 15:15 Nucleated RBC % (auto) 0 % 08/02/23 15:15 Nucleated RBCs # 0.0 /100WBC 08/02/23 15:15 Sodium 135 mmol/L (136-145) L 08/02/23 15:15 Potassium 4.0 mmol/L (3.5-5.1) 08/02/23 15:15 Chloride 100 mmol/L (98-107) 08/02/23 15:15 Carbon Dioxide 25 mmol/L (22-29) 08/02/23 15:15 Anion Gap 14.0 (5-19) 08/02/23 15:15 BUN 11 mg/dL (6-20) 08/02/23 15:15 Creatinine 1.0 mg/dL (0.5-0.9) H 08/02/23 15:15 GFR Calculation 61.7 mL/min (90-130) L 08/02/23 15:15 Glucose 95 mg/dL (65-115) 08/02/23 15:15 Calculated Osmolality 279 mOsm/kg (285-295) L 08/02/23 15:15 Calcium 8.2 mg/dL (8.5-10.5) L 08/02/23 15:15 All radiology interpretation(s) finalized by discharge Discharge Plan Discharge Patient Disposition: Home Clinical Impression: Neck swelling Condition: Stable Prescriptions: No Action levothyroxine 100 mcg/mL solution 500 mcg IM Q7D Rx Instructions: on Monday amitriptyline 10 mg Tablet 10 mg PO BEDTIME Discharge Orders: Discharge ED (Routine); Ordered 08/02/23 Ordered By: Zulema Weiner Referrals: Noa Lazaro FNP [Primary Care Provider] - 1-3 days Discharge Diet: Advance as tolerated Discharge Activity: Resume usual activity Patient Instructions: Lymphadenopathy (ED) Coding Level of Care Code ED Legal Word Processor for Emiliano Wang
[2023-08-02] MEDS: dexamethasone 10 mg/mL INJ IVP (14:17)
[2023-08-02 14:18] VITALS: BP 117/75; PULSE 62; O2SAT 99
[2023-08-02] MEDS: iohexol 350 mg/mL 500 mL Btl (per mL) IV (14:44)
[2023-08-02 15:00] VITALS: BP 119/81; PULSE 62; O2SAT 99
[2023-08-02 15:24] LABS: Basophils % 0.5 %; Eosinophils # 0.1 10^3/uL (0.0-0.8); Eosinophils % 1.5 %; Hematocrit 39.7 % (36-47); Lymphocytes # 1.7 10^3/uL (0.8-4.8); Lymphocytes % 26.3 %; Mean Corpuscular HGB Conc 32.2 g/dL (30-55); Mean Corpuscular Hemoglobin 27.4 pg (27-33); Mean Corpuscular Volume 84.8 fl (85-98); Mean Platelet Volume 11.8 fL (7.4-10.4); Monocytes # 0.3 10^3/uL (0.2-0.9); Monocytes % 4.1 %; Neutrophils # 4.42 10^3/uL (1.8-7.7); Neutrophils % 67.3 %; Nucleated Red Blood Cells % 0 %; Platelet Count 228 10^3/cmm (157-399); Red Blood Count 4.68 10^6/uL (3.85-5.65); Red Cell Distribution Width 15.3 % (12.1-15.1); White Blood Count 6.57 10^3/uL (3.29-11.43)
[2023-08-02 15:40] VITALS: BP 114/72; PULSE 64; O2SAT 97
[2023-08-02 15:45] LABS: Blood Urea Nitrogen 11 mg/dL (6-20); Calcium 8.2 mg/dL (8.5-10.5); Carbon Dioxide 25 mmol/L (22-29); Chloride 100 mmol/L (98-107); Creatinine Clr Calc Pharmacy 75.3014; Glomerular Filtration Rate 61.7 mL/min (90-130); Glucose 95 mg/dL (65-115); Osmolality Calculated 279 mOsm/kg (285-295); Sodium 135 mmol/L (136-145)
== END 2023-08-02 16:41 | disposition home or self-care (01) ==
PROVIDERS: Emergency Provider Emergency Medicine; PCP Nurse Practitioner Family
DX: M79.89 Other specified soft tissue disorders (principal)
CPT/HCPCS: 36415; 70491; 80048; 85025; 96374; 99285; J1100; Q9967

== ENCOUNTER 2023-08-18 14:54 | Outpatient (CLI) | payer MEDICAID, SELFPAY ==
[2023-08-18 16:35] LABS: 25 Hydroxy Vitamin D 31 ng/mL (30-100); Thyroid Stimulating Hormone 73.13 uIU/mL (0.27-4.20); Vitamin B12 593 pg/mL (232-1245)
[2023-08-18 16:59] LABS: Free T4 Free Thyroxine 0.54 ng/dL (0.82-1.77)
== END 2023-08-18 14:55 | disposition home or self-care (01) ==
LOC: LAB 14:55
PROVIDERS: PCP Nurse Practitioner Family; Visit Provider Internal Medicine
DX: E03.9 Hypothyroidism, unspecified (principal); R53.83 Other fatigue; E55.9 Vitamin D deficiency, unspecified; E53.8 Deficiency of other specified B group vitamins
CPT/HCPCS: 36415; 82306; 82607; 84439; 84443

== ENCOUNTER 2023-10-09 13:14 | Outpatient (CLI) | payer MEDICAID, SELFPAY ==
[2023-10-09 14:30] LABS: Free T4 Free Thyroxine 0.44 ng/dL (0.82-1.77); Thyroid Stimulating Hormone 79.64 uIU/mL (0.27-4.20)
== END 2023-10-09 13:15 | disposition home or self-care (01) ==
LOC: LAB 13:15
PROVIDERS: Internal Medicine; PCP Nurse Practitioner Family; Visit Provider Nurse Practitioner Family
DX: E03.9 Hypothyroidism, unspecified (principal); R79.89 Other specified abnormal findings of blood chemistry
CPT/HCPCS: 36415; 84439; 84443

== ENCOUNTER 2023-12-04 13:28 | Outpatient (CLI) | payer MEDICAID, SELFPAY ==
[2023-12-04 14:46] LABS: Free T4 Free Thyroxine 0.79 ng/dL (0.82-1.77)
[2023-12-05 07:09] LABS: T3 Total 128 ng/dL (76-181)
== END 2023-12-04 13:29 | disposition home or self-care (01) ==
LOC: LAB 13:29
PROVIDERS: PCP Nurse Practitioner Family; Visit Provider Internal Medicine
DX: E03.9 Hypothyroidism, unspecified (principal); R79.89 Other specified abnormal findings of blood chemistry
CPT/HCPCS: 36415; 84439; 84443; 84480

== ENCOUNTER 2024-02-07 07:50 | Outpatient (CLI) | payer MEDICAID, SELFPAY ==
[2024-02-07 08:35] LABS: Free T4 Free Thyroxine 0.88 ng/dL (0.82-1.77); Thyroid Stimulating Hormone 7.22 uIU/mL (0.27-4.20)
[2024-02-08 11:04] LABS: T3 Total 90 ng/dL (76-181)
== END 2024-02-07 07:51 | disposition home or self-care (01) ==
PROVIDERS: PCP Nurse Practitioner Family; Visit Provider Internal Medicine
DX: E03.9 Hypothyroidism, unspecified (principal)
CPT/HCPCS: 36415; 84439; 84443; 84480

== ENCOUNTER 2024-02-21 07:52 | Outpatient (CLI) | payer MEDICAID, SELFPAY ==
--- NOTE | 2024-02-21 07:53 | MM_ITS ---
WS: [id number] BILATERAL SCREENING DIGITAL TOMOSYNTHESIS MAMMOGRAM WITH CAD HISTORY: SCREENING COMPARISON: None available. Bilateral CC and MLO views with tomosynthesis and synthetic mammography submitted. Computer aided det ection analyzed. Breast composition: There are scattered areas of fibroglandular density. No suspicious masses, microc alcifications or architectural distortion. MM/MM scr BI tomosynthesis [id number] IMPRESSION: BI-RADS: 1 - Negative. FOLLOW UP: 1 Year Follow-up
== END 2024-02-21 07:53 | disposition home or self-care (01) ==
LOC: RAD 07:53
PROVIDERS: PCP Nurse Practitioner Family; Visit Provider Nurse Practitioner Family
DX: Z12.31 Encounter for screening mammogram for malignant neoplasm of breast (principal); R92.323 Mammographic fibroglandular density, bilateral breasts
CPT/HCPCS: 77063; 77067

== ENCOUNTER 2024-08-11 08:47 | Emergency (ER) | payer MEDICAID, SELFPAY ==
[2024-08-11 09:06] VITALS: BP 136/96; PULSE 95; RESP 20; TEMP 36.8; O2SAT 100; BMI 39.6
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
--- NOTE | 2024-08-11 09:17 | PC.NURSE ---
PATIENT DENIES SEXUAL ATTEMPTS WITHOUT CONSENT OVER THE PAST 5 DAYS.
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
[2024-08-11 10:23] VITALS: BP 126/78; PULSE 91; O2SAT 99
[2024-08-11 11:01] LABS: Amphetamines Screen Urine Positive (Negative); Barbiturates Screen Urine Negative (Negative); Benzodiazepines Screen Urine Negative (Negative); Cocaine Screen Urine Negative (Negative); Opiate Screen Urine Negative (Negative); PCP Screen Urine Negative (Negative); THC Screen Urine Negative (Negative)
== END 2024-08-11 10:24 | disposition home or self-care (01) ==
PROVIDERS: Emergency Provider Emergency Medicine; PCP Nurse Practitioner Family
DX: S20.219A Contusion of unspecified front wall of thorax, initial encounter (principal); Y04.2XXA Assault by strike against or bumped into by another person, initial encounter; M79.601 Pain in right arm; M79.641 Pain in right hand; M54.50 Low back pain, unspecified
CPT/HCPCS: 71045; 72100; 73090; 73130; 80306; 99284

== ENCOUNTER → 2024-08-30 08:04 | Outpatient (BNVA) | payer MEDICAID, SELFPAY | PROVIDERS: PCP Nurse Practitioner Family; Visit Provider Physician Assistant | DX: S63.8X1A Sprain of other part of right wrist and hand, initial encounter (principal); X58.XXXA Exposure to other specified factors, initial encounter | CPT/HCPCS: 73130 ==

== ENCOUNTER 2024-08-30 09:12 | Outpatient (CLI) | payer MEDICAID, SELFPAY | END 2024-08-30 09:13 | disposition home or self-care (01) | LOC: SPT 09:14 | PROVIDERS: PCP Nurse Practitioner Family; Visit Provider Physician Assistant | DX: Z46.89 Encounter for fitting and adjustment of other specified devices (principal); S69.91XD Unspecified injury of right wrist, hand and finger(s), subsequent encounter; X58.XXXD Exposure to other specified factors, subsequent encounter | CPT/HCPCS: L3984 ==

== ENCOUNTER 2024-09-04 07:48 | Outpatient (CLI) | payer MEDICAID, SELFPAY ==
--- NOTE | 2024-09-04 08:00 | MR_ITS ---
WS: [id number] MRI RIGHT HAND WITHOUT CONTRAST. COMPARISON: Radiographs 08/30/2024, 08/11/2024 Multiplanar, multisequence imaging is performed without contrast. No acute fracture or marrow edema noted within the hand of the visualized wrist. There is very slight subluxation at the first carpal metacarpal joint. The radial and ulnar collateral ligaments appear intact. There is a tiny amount of fluid in the first carpal metacarpal joint. Trapezium is normal position and signal. Normal hamate and hook of the hamate. Carpal bones are normally aligned. Flexor pollicis longus tendon normal. MR/MR hand RT wo con* [id number] IMPRESSION: 1. No acute fracture or marrow edema involving the base of the RIGHT thumb. 2. There is very slight subluxation at the first carpal metacarpal joint. 3. Ulnar and collateral ligaments are intact.
== END 2024-09-04 07:49 | disposition home or self-care (01) ==
PROVIDERS: PCP Nurse Practitioner Family; Visit Provider Physician Assistant
DX: S69.91XA Unspecified injury of right wrist, hand and finger(s), initial encounter (principal); X58.XXXA Exposure to other specified factors, initial encounter
CPT/HCPCS: 73218

== ENCOUNTER → 2024-11-13 12:04 | Outpatient (BNVA) | payer MEDICAID, SELFPAY | PROVIDERS: PCP Nurse Practitioner Family; Visit Provider Nurse Practitioner Family | DX: A08.4 Viral intestinal infection, unspecified (principal) | CPT/HCPCS: 80053; 85025 ==